=== PATIENT | male | born 1950 | race Caucasian/White ===

== ENCOUNTER 2019-12-24 07:49 | Outpatient (CLI) | payer MEDICARE ==
[2019-12-24] MEDS ORDERED: MIDAZOLAM 1 MG/ML, 5ML ONE (08:51)
[2019-12-24] MEDS ORDERED: FLUMAZENIL 0.1 MG/1 ML, 5ML ONE (08:51)
[2019-12-24] MEDS ORDERED: NALOXONE 1 MG/ML, 2ML ONE (08:51)
[2019-12-24] MEDS ORDERED: FENTANYL PF 100 MCG/2ML ONE ×2 (08:51)
== END 2019-12-24 23:59 | disposition home or self-care (01) ==
LOC: RAD 07:49
PROVIDERS: ATTEND Nurse Practitioner Psychiatric/Mental Health
DX: M62.81 Muscle weakness (generalized) (principal); G12.8 Other spinal muscular atrophies and related syndromes; M50.30 Other cervical disc degeneration, unspecified cervical region; G93.9 Disorder of brain, unspecified; F41.9 Anxiety disorder, unspecified; F32.9 Major depressive disorder, single episode, unspecified; G47.30 Sleep apnea, unspecified; E03.9 Hypothyroidism, unspecified; Z79.899 Other long term (current) drug therapy; Z86.73 Personal history of transient ischemic attack (TIA), and cerebral infarction without residual deficits; Z87.891 Personal history of nicotine dependence; Z72.89 Other problems related to lifestyle; Z82.49 Family history of ischemic heart disease and other diseases of the circulatory system
CPT/HCPCS: 70551; 72141; 99156; 99157; J2250; J3010; J2310